=== PATIENT | female | born 1980 | race Caucasian/White ===

== ENCOUNTER 2017-04-22 17:28 | Emergency (ER) | payer SELFPAY ==
[2017-04-22 17:34] VITALS: BP 137/74
[2017-04-22] MEDS ORDERED: CIPROFLOXACIN HCL/DEXAMETH OTIC DROP 7.5 ML AS ONE (18:08)
--- NOTE | 2017-04-22 18:14 | ER Document Report ---
HPI - HPI Pain Level: 4 Notes: Patient is a 36-year-old female who presents to the ED complaining of right ear pain, nasal congestion/discharge, dry nonproductive cough 5 days. Patient states that she is just mostly concerned about her right ear as she has had recurrent ear infections before. Patient states that she feels like the cold is just a mild illness and that she is feeling well otherwise. She is still eating and drinking without difficulties. She has not noticed any tinnitus or dizziness. She has not noticed any drainage from her right ear. Patient states that she has tried natural remedies for her ear with no relief. Denies any drug allergies or significant medical history otherwise. Denies any headache, fever, head injury, neck pain, sore throat, chest pain, palpitations, syncope, shortness of breath, wheeze, dyspnea, abdominal pain, nausea/vomiting/ diarrhea, urinary retention, dysuria, hematuria, or rash. - ROS Notes: REVIEW OF SYSTEMS: CONSTITUTIONAL : Denies fever, chills, or sweats. Denies recent illness. EENT: see hpi CARDIOVASCULAR: Denies chest pain. Denies palpitations or racing or irregular heart beat. Denies ankle edema. RESPIRATORY: see hpi. Denies shortness of breath, difficulty breathing, or wheezing. GASTROINTESTINAL: Denies abdominal pain or distention. Denies nausea, vomiting , or diarrhea. Denies blood in vomitus, stools, or per rectum. Denies black, tarry stools. Denies constipation. GENITOURINARY: Denies difficulty urinating, painful urination, burning, frequency, blood in urine, or discharge. MUSCULOSKELETAL: Denies back or neck pain or stiffness. Denies joint pain or swelling. SKIN: Denies rash, lesions or sores. NEUROLOGICAL: Denies dizziness or lightheadedness. Denies headache. Denies weakness or paralysis or loss of use of either side. Denies problems with gait or speech. Denies sensory loss, numbness, or tingling. ALL OTHER SYSTEMS REVIEWED AND NEGATIVE. Dictation was performed using [employer] voice recognition software - CONSTITUTIONAL Constitutional: DENIES: Fever, Chills - EENT EENT: REPORTS: Ear Pain - R ear. DENIES: Sore Throat, Eye problems - CARDIOVASCULAR Cardiovascular: REPORTS: Chest pain - RESPIRATORY Respiratory: REPORTS: Coughing - productive. DENIES: Trouble Breathing Past Medical History - Social History Smoking Status: Never Smoker Frequency of alcohol use: None Drug Abuse: None Family History: Reviewed & Not Pertinent Patient has suicidal ideation: No Patient has homicidal ideation: No Renal/ Medical History: Denies: Hx Peritoneal Dialysis Vertical Provider Document - CONSTITUTIONAL Agree With Documented VS: Yes Notes: PHYSICAL EXAMINATION: GENERAL: Well-appearing, well-nourished and in no acute distress. A&Ox4 HEAD: Atraumatic, normocephalic. EYES: Pupils equal round and reactive to light, extraocular movements intact, sclera anicteric, conjunctiva are normal. ENT: Rt EAC erythematous and swollen. + tenderness to tragus and to canal. Lt EAC wnl. TM's intact b/l without erythema, fluid, or perforation. Nares patent and without discharge. oropharynx clear without exudates. No tonsilar hypertrophy or erythema. Moist mucous membranes. No sinus tenderness. NECK: Normal range of motion, supple without lymphadenopathy. No rigidity/ meningismus. LUNGS: Breath sounds clear to auscultation bilaterally and equal. No wheezes rales or rhonchi. HEART: Regular rate and rhythm without murmurs, rubs, gallops. Extremities: No cyanosis, clubbing, or edema b/l. Peripheral pulses 2+. Capillary refill less than 3 seconds. NEUROLOGICAL: Cranial nerves grossly intact. Normal speech, normal gait. Normal sensory, motor exams PSYCH: Normal mood, normal affect. SKIN: Warm, Dry, normal turgor, no rashes or lesions noted. - INFECTION CONTROL TRAVEL OUTSIDE OF THE [place] IN LAST 30 DAYS: No - RESPIRATORY O2 Sat by Pulse Oximetry: 97 Course - Re-evaluation Re-evalutation: 04/22/17 18:18 Patient is an afebrile, well-hydrated, 36-year-old female who presents ED with acute otitis externa of the right ear. Vitals are stable. PE is otherwise unremarkable. Wick was placed and Ciprodex drops were placed thereafter. Low suspicion for any sepsis, meningitis, mastoiditis, or other systemic emergent condition at this time. Patient to monitor symptoms closely and seek medical attention with acute changes. I will send her home with a prescription for the Ciprodex to use as directed. Conservative measures otherwise for symptoms. Recheck with your PCM in 3-5 days. Return to the ED with any worsening/ concerning symptoms otherwise as reviewed in discharge. Patient is in agreement. - Vital Signs Vital signs: Temp Pulse Resp BP Pulse Ox 99.0 F 79 16 137/74 H 97 04/22/17 17:34 04/22/17 17:34 04/22/17 17:34 04/22/17 17:34 04/22/17 17:34 Procedures - Additional Procedures ear wick Time performed: 18:15 Notes: 04/22/17 18:14 ear wick placed with ciprodex drops no complications. pt tolerated proc well. Discharge - Discharge Clinical Impression: Otitis externa Qualifiers: Otitis externa type: unspecified type Chronicity: acute Laterality: right Qualified Code(s): H60.501 - Unspecified acute noninfective otitis externa, right ear Condition: Stable Disposition: HOME, SELF-CARE Instructions: Using Ear Drops with a Wick ([facility]), Otitis Externa ([facility]) Additional Instructions: Maintain adequate fluid intake Take meds as directed tylenol/ibuprofen as needed over the counter cold medication as needed for symptoms Humidified air may help F/u: with your PCM in 3-5 days for a recheck Return to the ED with any fever, worsening pain, chest pain, palpitations, syncope, worsening REY, neck pain/stiffness, shortness of breath, wheezing, drooling, trouble swallowing/breathing, abdominal pain, n/v/d, rash, or worsening/concerning symptoms otherwise. Prescriptions: Ciprofloxacin HCl/Dexameth [Ciprodex Otic Suspension 7.5 ml Bottle] 4 drop OT BID #1 bottle Forms: Elevated Blood Pressure Referrals: REJI CUENCA DO [ASSOCIATE] - Follow up as needed
== END 2017-04-22 18:26 | disposition home or self-care (01) ==
LOC: ER 17:28
DX: H60.501 Unspecified acute noninfective otitis externa, right ear (principal); H92.01 Otalgia, right ear; R09.81 Nasal congestion; R05 Cough
CPT/HCPCS: 99283; J3490

== ENCOUNTER 2017-11-03 05:29 | Day surgery (SDC) | payer BC ==
[2017-10-28 10:30] LABS: HEMATOCRIT 40.5 % (36.0-47.0); MEAN CORPUSCULAR HEMOGLOBIN 29.8 pg (27.0-33.4); MEAN CORPUSCULAR HGB CONC 34.6 g/dL (32.0-36.0); MEAN CORPUSCULAR VOLUME 86 fl (80-97); PLATELET COUNT 165 10^3/uL (150-450); WHITE BLOOD COUNT 5.5 10^3/uL (4.0-10.5)
[2017-10-28 10:48] LABS: APPEARANCE,URINE SLIGHTLY-CLOUDY; BILIRUBIN,URINE NEGATIVE (NEGATIVE); COLOR,URINE YELLOW; GLUCOSE, URINE NEGATIVE (NEGATIVE); KETONES,URINE NEGATIVE (NEGATIVE); LEUKOCYTE ESTERASE,URINE NEGATIVE (NEGATIVE); NITRITE,URINE NEGATIVE (NEGATIVE); PROTEIN,URINE NEGATIVE (NEGATIVE); URINE SPECIFIC GRAVITY 1.025; UROBILINOGEN,URINE NEGATIVE mg/dL (<2.0)
[2017-10-28 11:01] LABS: ALANINE AMINOTRANSFERASE 35 U/L (9-52); ALBUMIN 4.3 g/dL (3.5-5.0); ALKALINE PHOSPHATASE 53 U/L (38-126); ANION GAP 12 (5-19); ASPARTATE AMINO TRANSFERASE 21 U/L (14-36); BILIRUBIN,DIRECT 0.3 mg/dL (0.0-0.4); BILIRUBIN,TOTAL 0.4 mg/dL (0.2-1.3); BLOOD UREA NITROGEN 17 mg/dL (7-20); CALCIUM 9.3 mg/dL (8.4-10.2); CARBON DIOXIDE 23 mmol/L (22-30); CHLORIDE 107 mmol/L (98-107); GLUCOSE 107 mg/dL (75-110); POTASSIUM 4.3 mmol/L (3.6-5.0); SODIUM 141.6 mmol/L (137-145)
[~2017-11-03 05:29] MED LIST: CEFAZOLIN 1 GM/D5W RTU 1 GM/50 ML RTUPB IV PRN; LACTATED RINGERS 1000 ML IV PRN; LIDOCAINE 0.5% INJ-PF (5 MG/ML) 50 ML SDV SUBCUT PRN
[2017-11-03] MEDS ORDERED: LIDOCAINE 1% INJ-PF (10 MG/ML) 30 ML SDV ONE (06:41)
[2017-11-03] MEDS ORDERED: BUPIVACAINE HCL 0.25 % INJ/PF (2.5 MG/1 ML) 30 ML VIAL ONE (06:41)
[2017-11-03] MEDS ORDERED: FENTANYL CITRATE INJ/PF 100 MCG/2 ML AMPUL ONE (06:44)
[2017-11-03] MEDS ORDERED: MORPHINE SULFATE 10 MG/ML INJ ONE (06:45)
[2017-11-03] MEDS ORDERED: ACETAMINOPHEN 1,000 MG/100 ML RTUPB IV ONE (06:45)
[2017-11-03] MEDS ORDERED: PROPOFOL INJ 200 MG/20 ML VIAL IV ONE (06:45)
[2017-11-03] MEDS ORDERED: MIDAZOLAM 2 MG/2 ML INJ ONE (06:45)
[2017-11-03] MEDS ORDERED: SCOPOLAMINE HYDROBROMIDE 1.5 MG PATCH.TD72 ONE (07:12)
[2017-11-03] MEDS ORDERED: FAMOTIDINE INJ/PF 20 MG/2 ML SDV IV ONE (07:12)
[2017-11-03] MEDS ORDERED: MORPHINE SULFATE 10 MG/ML INJ IV PRN (08:06)
[2017-11-03] MEDS ORDERED: DIPHENHYDRAMINE HCL 50 MG/ML VIAL IV PRN (08:06)
[2017-11-03] MEDS ORDERED: FENTANYL CITRATE INJ/PF 100 MCG/2 ML AMPUL IV PRN ×3 (08:06)
[2017-11-03] MEDS ORDERED: OXYCODONE-ACETAMINOPHEN 5-325 MG TABLET PO PRN ×4 (08:06→09:57)
[2017-11-03] MEDS ORDERED: PROMETHAZINE HCL INJ 25 MG/1 ML VIAL IV PRN ×3 (08:06→09:57)
[2017-11-03] MEDS ORDERED: MEPERIDINE HCL/PF INJ 25 MG/1 ML DISP.SYRIN IV PRN (08:06)
[2017-11-03] MEDS: FENTANYL CITRATE INJ/PF 100 MCG/2 ML AMPUL ONE ×2 (09:16→09:29)
--- NOTE | 2017-11-03 09:48 | OPERATIVE REPORT E ---
Operative Report NAME: DANA CALLEJAS : 1980 AGE: 36Y DATE OF SURGERY: 11/03/2017 ROOM: PREOPERATIVE DIAGNOSIS: 1. Undesired fertility. 2. Dysfunctional uterine bleeding. POSTOPERATIVE DIAGNOSIS: 1. Undesired fertility. 2. Dysfunctional uterine bleeding. OPERATION: D and C Hysteroscopy, laparoscopic Filshie clip application. SURGEON: HUGO ZAMAN M.D. ANESTHESIA: General and 0.25% Marcaine. ESTIMATED BLOOD LOSS: Negligible. PERTINENT HISTORY AND OPERATIVE FINDINGS: This is a 36-year-old, -1, para-1 female who was having some trouble with irregular menses and bleeding with desires for elective sterilization and control of her menometrorrhagia. At the time of surgery vagina and vulva appeared to be normal. The cervix appeared to be normal. The uterus was slightly enlarged and somewhat boggy. The pelvis and the abdomen had multiple adhesions secondary to prior surgery on patient's liver and gallbladder. The ovaries, as stated, appeared to be normal. The tubes themselves appeared to be normal. The uterus was slightly increased in size. OPERATIVE PROCEDURE: Patient was brought into the OR and placed on the table in a supine position and she was then inducted under general anesthesia, repositioned in a dorsal lithotomy position. The patient was prepped and drapes were applied. The bladder was emptied with a straight cath, having about 25 mL. A pelvic under anesthesia was performed. Having accomplished this a speculum was inserted and the cervix was visualized. A probe was inserted and the uterus was sounded to 12 cm. A tenaculum probe was inserted and the other equipment was removed. Attention was turned toward the abdominal wall. A Veress needle was introduced umbilically and carried through the various layers until the abdominal cavity was entered. Upon entering the abdominal cavity, she was connected to CO2, opening pressure was 5 and insufflation was carried out to 2.4 liters of CO2 and a pressure of 15-cm. Having accomplished this, the Veress needle was removed. A small incision was made infraumbilically. Through this incision a trocar and sleeve were inserted. As stated, there were multiple adhesions and we worked our way around these. This was from her previous gallbladder surgery and we were able to identify the uterus, tubes, and ovaries. Pictures were taken. At this point in time we made a second incision suprapubically. Through this incision a trocar and sleeve were inserted. Through the sleeve a Filshie clip applicator was inserted. The right tube was then picked up in its smallest position at the proximal area of the tube and the Filshie clip was applied. The same procedure was then carried out on the left tube. This terminated this part of the procedure. The lower sleeve was removed. The scope was removed. The CO2 was allowed to escape and then the upper sleeve was removed. The fascia was closed in the suprapubic with 0-Vicryl. The fascia was closed in the subumbilical also with 0-Vicryl. She had 4 mL of 0.25% Marcaine injected into each incision. The subumbilical incision was then closed with a subcuticular 4-0 Prolene. The pubic incision was closed with interrupted 4-0 Prolene. Attention was then turned back down to the pelvis. The weighted speculum was then reinserted. The cervix was grasped by a single-tooth tenaculum and an Allis. Having done this, the cervix was dilated to a #8 Stacy dilator and the hysteroscope was introduced through the external and internal cervical os. The cavity of the uterus was visualized. There was no evidence of any ongoing pathology. There was still some stringy endometrial tissue. We had already done a D and C and removed some of the tissue for evaluation. The hysteroscope was removed after removing the excess saline and we opened up with Novasure. It was served through the ecto- and endocervix and into the uterine cavity. It was taken up through the top and then opened up. Unfortunately, the patient's cavity was too narrow. We could not get it to the appropriate width and we tried a number of times to get it to open and were unsuccessful because we did not have the appropriate width. We decided to terminate this part of the procedure. The Novasure was removed. We went ahead and removed the equipment access. Blood from the vagina was removed. This terminated procedure. The anesthesia was stopped. The patient was placed back in the supine position and transferred to the recovery room in satisfactory condition. She had negligible blood loss and left the operating room in satisfactory condition with a postop diagnosis of fertility resolved with laparoscopic Filshie clips and unsuccessful Novasure due to too narrow of an endometrial cavity. DICTATING PHYSICIAN: HUGO ZAMAN M.D. [id number] PHY#: [id number] ID: [id number] JOB#: [id number] ACCT: [id number] cc:HUGO ZAMAN M.D. >
[2017-11-03] MEDS ORDERED: OXYCODONE-ACETAMINOPHEN 5-325 MG TABLET ONE (10:08)
[2017-11-03 11:15] VITALS: BP 120/77
[2017-11-03] MEDS ORDERED: SUCCINYLCHOLINE CHLORIDE INJ 200 MG/10 ML VIAL ONE (14:38)
[2017-11-03] MEDS ORDERED: DEXAMETHASONE SOD PHOSPHATE INJ 4 MG/1 ML VIAL ONE (14:38)
[2017-11-03] MEDS ORDERED: ROCURONIUM BROMIDE INJ 50 MG/5 ML VIAL IV ONE (14:38)
== END 2017-11-03 11:14 | disposition home or self-care (01) ==
LOC: OROUT 05:29
PROVIDERS: ATTEND Obstetrics & Gynecology
DX: Z30.2 Encounter for sterilization (principal); N93.8 Other specified abnormal uterine and vaginal bleeding
CPT/HCPCS: 36415; 85027; 81025; 80053; 81001; 88305 ×2; 58558; 58671; J2250; J0690; J3490; J1100; J3010; J2270; J0330; J2704; S0028; J0131; 851

== ENCOUNTER → 2019-11-16 | Outpatient (CLI) | payer BC ==
--- NOTE | 2019-11-16 13:14 | ER [facility] ASSESSMENT REPORT ---
Intake - In the Last 14 days Have you traveled outside [place]?: No Have you been in close contact with someone CONFIRMED: No Worked in Healthcare?: No - Symptoms Subjective Fever(Flynn feverish): No Chills: No Muscule Aches: Yes Runny Nose: No Sore Throat: Yes Cough (New or worsening chronic cough): No Shortness of breath: No Nausea or Vomiting: No Headache: Yes Abdominal Pain: No Diarrhea(3 or more loose stools in last 24 hours): Yes - Do you have any of the following Chronic lung disease: Asthma or emphysema or COPD: No Cystic Fibrosis: No Diabetes: No High Blood Pressure: No Cardiovascular Disease: No Chronic Kidney Disease: No Chronic Liver Disease: No Chronic blood disorder like Sickle Cell Disease: No Weak immune system due to disease or medication: No Neurologic condition that limits movement: No Developmental delay - Moderate to Severe: No Recent (within past 2 weeks) or current : No Morbid Obesity (>100 pounds over ideal weight): No - Objective Temperature: 97.7 F Pulse Rate: 81 Respiratory Rate: 16 Blood Pressure: 135/72 O2 Sat by Pulse Oximetry: 93 Objective: Given above, testing performed: If Testing Performed: Test Specimen Type Sent to General - General Information source: Patient Notes: Patient presents to the [facility] for screening for the coronavirus. Patient reports having body aches, sore throat and headache for the past 3 days. Patient denies any recent known exposure to someone with the coronavirus. - Related Data Allergies/Adverse Reactions: No Known Allergies Allergy (Verified 10/28/17 09:30) Past Medical History - General Information source: Patient - Social History Smoking Status: Current Every Day Smoker - vapes Family History: Reviewed & Not Pertinent - Medical History Medical History: Negative - Past Medical History Cardiac Medical History: Denies: Hx Coronary Artery Disease, Hx Heart Attack, Hx Hypertension Pulmonary Medical History: Denies: Hx Asthma, Hx Bronchitis, Hx COPD, Hx Pneumonia Neurological Medical History: Denies: Hx Cerebrovascular Accident, Hx Seizures Renal/ Medical History: Denies: Hx Peritoneal Dialysis Musculoskeletal Medical History: Denies Hx Arthritis Surgical Hx: Negative Physical Exam - Notes Notes: Full physical exam could not be performed due to covid 19 isolation protocols. Constitutional: Nontoxic appearance, no acute distress Eyes: Nonicteric, extraocular movements intact, sclera clear ENT: Posterior pharynx clear without exudates, no tonsillar hypertrophy, no angioedema Cardiovascular: Heart rate and rhythm regular, no JVD Respiratory: Breath sounds clear bilaterally, nonlabored breathing, no use of accessory muscles, no tachypnea Gastrointestinal: Abdomen not distended Muculoskeletal: Moves all extremities well Skin: Normal color Neuro: Awake alert oriented, normal speech Psych: Normal mood and affect Diagnostic Results Laboratory Results: The patient was evaluated during the global Covid 19 pandemic, and that diagnosis was suspected/considered upon their initial presentation. Their evaluation, treatment and testing was consistent with current guidelines for patients who present with complaints or symptoms that may be related to Covid 19. Patient presents with upper respiratory symptoms worrisome for possible Covid 19. Patient does not have emergency worrying symptoms such as difficulty breathing, shortness of breath, chest pain, pressure, confusion or cyanosis. Patient appears suitable for discharge as they are not of an advanced age, do not have any chronic medical conditions such as diabetes, CAD, immune deficiency, chronic lung disease or chronic kidney disease. Patient's vital signs are stable and patient is nontoxic in appearance. Good return precautions have been discussed with patient, patient verbalized understanding and is agreeable with discharge plan of care at this time. Patient Education/Counseling Counseling/Education: Patient was provided with discharge information including: As a person under investigation for Covid 19, the [place] department of Health and Human Services, division of public health advises you to adhere to the following guidance until your test results are reported to you. If your test result is positive, you will receive additional information from your provider and your local health department at that time. Remain at home until you are cleared by the health provider or public health authorities. Keep a log of visitors to your home, notify any visitors to your home of your isolation status. If you plan to move to a new address or leave the county, notify the local health department in your County. Call your doctor or seek care if you have an urgent medical need. Before seeking medical care, call ahead to get instructions from the provider before arriving at the medical office clinic or hospital. Notify them that you are being tested for the virus that causes Covid 19 so that arrangements can be made, as necessary, to prevent transmission to others in the healthcare setting. Next, notify the local health department in your county. If a medical emergency arises and you need to call 911, inform the first responders that you are being tested for the virus that causes Covid 19. Next, notify the local health department in your county. [facility] Discharge - Discharge Clinical Impression: Encounter for screening laboratory testing for COVID-19 virus Condition: Stable Disposition: Home; Selfcare
[2019-11-16 13:34] VITALS: BP 135/72
== END ==
LOC: RDC 12:51
PROVIDERS: ATTEND Nurse Practitioner Family
DX: Z20.828 Contact with and (suspected) exposure to other viral communicable diseases (principal); J02.9 Acute pharyngitis, unspecified; M79.10 Myalgia, unspecified site; R51 Headache; R19.7 Diarrhea, unspecified; F17.290 Nicotine dependence, other tobacco product, uncomplicated
CPT/HCPCS: 87070; 87880; 87635; C9803; 99201; 99211